=== PATIENT | female | born 1990 | race African-American/Black ===

== ENCOUNTER 2021-02-05 21:42 | Emergency (ER) | payer OTHER ==
[2021-02-05 21:57] VITALS: BP 123/81; PULSE 72; TEMP 98.4; BMI 41.1
[2021-02-05] MEDS ORDERED: LIDOCAINE PATCH REMOVAL MC SCH (22:00)
[2021-02-05] MEDS ORDERED: METOCLOPRAMIDE HCL INJECTION 10 MG/2 ML VIAL IVPUSH ONE (22:51)
[2021-02-05] MEDS ORDERED: SODIUM CHLORIDE 0.9% 500 ML INFUS.BAG IV ONE (22:51)
[2021-02-05] MEDS ORDERED: ACETAMINOPHEN 1000 MG/100 ML VIAL (NON FORMULARY) IVPB ONE (22:52)
[2021-02-05] MEDS ORDERED: LIDOCAINE 5% TOPICAL PATCH TP ONE (22:52)
[2021-02-05] MEDS ORDERED: METOCLOPRAMIDE HCL INJECTION 10 MG/2 ML VIAL ONE (22:54)
[2021-02-05] MEDS ORDERED: ACETAMINOPHEN INJECTION 100 ML IVPB ONE (22:54)
[2021-02-05] MEDS ORDERED: LIDOCAINE 5% TOPICAL PATCH ONE (22:55)
[2021-02-05 23:20] LABS: BASO % 0.4 % (0-2.0); EOS % 0.1 % (0-4.5); HEMOGLOBIN 11.4 GM/dL (10.7-15.3); LYMPH % 30.1 % (8-40); MCH 23.8 pg (25.7-33.7); MCHC 32.4 g/dl (32.0-36.0); MEAN CELL VOLUME 73.3 fl (80-96); MEAN PLT VOLUME 9.1 fl (7.5-11.1); NEUT % 62.4 % (42.8-82.8); PLATELET COUNT 270 10^3/uL (134-434); RBC 4.77 M/mm3 (3.60-5.2); RDW 15.2 % (11.6-15.6); WHITE BLOOD COUNT 6.3 K/mm3 (4.0-10.0)
[2021-02-05 23:53] LABS: BLOOD UREA NITROGEN 10.2 mg/dL (7-18); CALCIUM 9.2 mg/dL (8.5-10.1)
[2021-02-05 23:57] LABS: CREATININE 0.9 mg/dL (0.55-1.3)
[2021-02-05 23:58] LABS: BILIRUBIN,TOTAL 0.4 mg/dL (0.2-1); TOT PROT 7.5 g/dl (6.4-8.2)
== END 2021-02-06 03:44 | disposition home or self-care (01) ==
LOC: JER 21:42
PROC: 3E033NZ Introduction of Analgesics, Hypnotics, Sedatives into Peripheral Vein, Percutaneous Approach (ICD-10-PCS; principal; 2021-02-05)
PROC: 3E033GC Introduction of Other Therapeutic Substance into Peripheral Vein, Percutaneous Approach (ICD-10-PCS; 2021-02-05)
DX: R51.9 Headache, unspecified (principal)
CPT/HCPCS: 36415; 70496-TC; 80053; 84703; 85025; 99285-25; J0131; Q9967